=== PATIENT | male | born 2005 | race Caucasian/White ===

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

== ENCOUNTER 2024-04-13 09:09 | Emergency (ER) | payer MEDICAID, SELFPAY ==
[~2024-04-13] VITALS: Ht 185.4 cm; Wt 79.8 kg
[~2024-04-13 09:09] MED LIST changes: +DOXY-323 PO; -DOXY-443 PO
[2024-04-13] MEDS ORDERED: FLON1SPR NARES (12:21)
[2024-04-13] MEDS ORDERED: BENZ200C70 PO (12:21)
[2024-04-13] MEDS ORDERED: PSEU30TA88 PO (12:21)
[2024-04-13 12:23] VITALS: BP 122/68; TEMP 96.6; O2SAT 100
[2024-04-14] MEDS ORDERED: TRIA1PST TOP (15:28)
== END 2024-04-13 12:35 | disposition home or self-care (01) ==
LOC: M ED 09:09
DX: R05.9 Cough, unspecified (principal); R09.81 Nasal congestion; R09.89 Other specified symptoms and signs involving the circulatory and respiratory systems; Z79.2 Long term (current) use of antibiotics; Z79.899 Other long term (current) drug therapy

== ENCOUNTER 2024-04-29 14:15 | Emergency (ER) | payer MEDICAID ==
[~2024-04-29] VITALS: Ht 185.4 cm; Wt 74.5 kg
[~2024-04-29 14:15] MED LIST changes: +BENZ200C70 PO; -DOXY-323 PO; +DOXY-441 PO; +FLON1SPR NARES; +PSEU30TA88 PO; +TRIA1PST TOP
[2024-04-29 14:58] LABS: HEMATOCRIT 45.5 % (42.0-52.0); HEMOGLOBIN 15.6 g/dl (13.5-17.5); MEAN CORPUSCULAR HEMOGLOBIN 30.8 pg (27.0-33.0); MEAN CORPUSCULAR HGB CONC 34.3 g/dl (32.0-36.5); MEAN CORPUSCULAR VOLUME 89.9 fl (80.0-96.0); PLATELET COUNT, AUTOMATED 320 10^3/uL (150-450); RED BLOOD COUNT 5.06 10^6/uL (4.30-6.10); WHITE BLOOD COUNT 5.6 10^3/uL (4.0-10.0)
[2024-04-29 15:25] LABS: AMPHETAMINES LEVEL URINE NEGATIVE (NEGATIVE); BARBITURATES URINE NEGATIVE (NEGATIVE); BENZODIAZEPINES URINE NEGATIVE (NEGATIVE); CANNABINOIDS URINE NEGATIVE (NEGATIVE); COCAINE METABOLITE URINE NEGATIVE (NEGATIVE); METHADONE URINE NEGATIVE (NEGATIVE); OPIATES URINE NEGATIVE (NEGATIVE); PHENCYCLIDINE URINE NEGATIVE (NEGATIVE)
[2024-04-29 15:28] LABS: ETHYL ALCOHOL (ETHANOL) 0.082 % (0.000-0.010)
[2024-04-29 15:29] LABS: SALICYLATE LEVEL < 3.0 MG/DL (<30)
[2024-04-29 15:30] LABS: ALBUMIN 4.6 G/DL (3.2-5.2); ALKALINE PHOSPHATASE 73 U/L (46-116); ALT/SGPT 18 U/L (7.0-40); AST/SGOT < 8 U/L (<34); BILIRUBIN,DIRECT 0.2 MG/DL (<0.4); BILIRUBIN,TOTAL 0.5 MG/DL (0.3-1.2); BLOOD UREA NITROGEN 7 MG/DL (9-23); CALCIUM LEVEL 9.3 MG/DL (8.5-10.1); CARBON DIOXIDE LEVEL 27 MMOL/L (20-31); CHLORIDE LEVEL 109 MMOL/L (98-107); CREATININE FOR GFR 0.77 MG/DL (0.70-1.30); GLUCOSE, FASTING 87 MG/DL (60-100); SODIUM LEVEL 142 MMOL/L (136-145); TOTAL PROTEIN 7.9 G/DL (5.7-8.2)
[2024-04-29 15:31] LABS: THYROID STIMULATING HORMONE 0.919 uIU/ML (0.48-4.17)
[2024-04-29] MEDS ORDERED: HOME MED LIST COMPLETE! XX SCH (16:00)
[2024-04-29 18:19] VITALS: BP 138/75; TEMP 97.7; O2SAT 99
== END 2024-04-29 18:22 | disposition home or self-care (01) ==
LOC: M ED 14:15
DX: Z04.6 Encounter for general psychiatric examination, requested by authority (principal); F17.210 Nicotine dependence, cigarettes, uncomplicated; F10.10 Alcohol abuse, uncomplicated

== ENCOUNTER 2024-06-13 14:49 | Emergency (ER) | payer MEDICAID, OTHER ==
[~2024-06-13] VITALS: Ht 188 cm; Wt 81.0 kg
[2024-06-13 15:17] LABS: BASO % 0.7 % (0.0-1.0); EOS # 0.4 10^3/uL (0.0-0.5); EOS % 7.1 % (0.0-3.0); HEMATOCRIT 43.5 % (42.0-52.0); HEMOGLOBIN 14.9 g/dl (13.5-17.5); LYMPH # 1.4 10^3/uL (1.5-5.0); LYMPH % 26.8 % (24.0-44.0); MEAN CORPUSCULAR HEMOGLOBIN 31.2 pg (27.0-33.0); MEAN CORPUSCULAR HGB CONC 34.3 g/dl (32.0-36.5); MONO # 0.8 10^3/uL (0.0-0.8); MONO % 13.9 % (2.0-8.0); NEUTROPHILS # 2.7 10^3/uL (1.5-8.5); NEUTROPHILS % 50.9 % (36.0-66.0); PLATELET COUNT, AUTOMATED 267 10^3/uL (150-450); RED BLOOD COUNT 4.78 10^6/uL (4.30-6.10); WHITE BLOOD COUNT 5.4 10^3/uL (4.0-10.0)
[2024-06-13 15:50] LABS: BLOOD UREA NITROGEN 14 MG/DL (9-23); CALCIUM LEVEL 9.4 MG/DL (8.5-10.1); CARBON DIOXIDE LEVEL 31 MMOL/L (20-31); CHLORIDE LEVEL 106 MMOL/L (98-107); CK-MB VALUE MASS < 1.0 NG/ML (<3.6); CPK CREATINE PHOSPHOKINASE 93 U/L (46-171); CREATININE FOR GFR 0.73 MG/DL (0.70-1.30); GLUCOSE, FASTING 61 MG/DL (60-100); MB/CK RELATIVE INDEX 1.07 (< OR =4); POTASSIUM SERUM 3.8 MMOL/L (3.5-5.1); SODIUM LEVEL 141 MMOL/L (136-145)
[2024-06-13 17:00] VITALS: BP 124/58; TEMP 98.8; O2SAT 98
== END 2024-06-13 17:15 | disposition home or self-care (01) ==
LOC: M ED 14:49
DX: R07.9 Chest pain, unspecified (principal); F10.10 Alcohol abuse, uncomplicated; F17.200 Nicotine dependence, unspecified, uncomplicated; F12.10 Cannabis abuse, uncomplicated

== ENCOUNTER → 2024-09-30 | Outpatient (CLI) | payer OTHER ==
[2024-09-30 15:31] LABS: BASO # 0.1 10^3/uL (0.0-0.2); BASO % 1.2 % (0.0-1.0); EOS # 0.4 10^3/uL (0.0-0.5); EOS % 8.6 % (0.0-3.0); HEMATOCRIT 42.8 % (42.0-52.0); HEMOGLOBIN 14.3 g/dl (13.5-17.5); LYMPH # 1.7 10^3/uL (1.5-5.0); LYMPH % 34.9 % (24.0-44.0); MEAN CORPUSCULAR HEMOGLOBIN 30.2 pg (27.0-33.0); MEAN CORPUSCULAR HGB CONC 33.4 g/dl (32.0-36.5); MEAN CORPUSCULAR VOLUME 90.3 fl (80.0-96.0); MONO # 0.7 10^3/uL (0.0-0.8); MONO % 14.4 % (2.0-8.0); NEUTROPHILS % 40.3 % (36.0-66.0); PLATELET COUNT, AUTOMATED 270 10^3/uL (150-450); RED BLOOD COUNT 4.74 10^6/uL (4.30-6.10); WHITE BLOOD COUNT 4.9 10^3/uL (4.0-10.0)
[2024-09-30 15:33] LABS: VITAMIN B12 LEVEL 437 PG/ML (211-911)
[2024-09-30 15:35] LABS: ALKALINE PHOSPHATASE 71 U/L (40-129); ALT/SGPT 16 U/L (7.0-40); AST/SGOT 10 U/L (<34); BILIRUBIN,TOTAL 0.4 MG/DL (0.3-1.2); BLOOD UREA NITROGEN 13 MG/DL (9-23); CALCIUM LEVEL 8.7 MG/DL (8.5-10.1); CARBON DIOXIDE LEVEL 29 MMOL/L (20-31); CHLORIDE LEVEL 105 MMOL/L (98-107); CHOLESTEROL LEVEL 115 MG/DL (<200); CHOLESTEROL RISK RATIO 2.87 (<5); CPK CREATINE PHOSPHOKINASE 91 U/L (46-171); CREATININE FOR GFR 0.77 MG/DL (0.70-1.30); GLUCOSE, FASTING 85 MG/DL (60-100); IRON (FE) 118 UG/DL (65-175); LDL CHOLESTEROL 55.6 MG/DL (<100); PERCENT SATURATION 37.5 % (19.7-50.0); POTASSIUM SERUM 4.3 MMOL/L (3.5-5.1); SODIUM LEVEL 141 MMOL/L (136-145); THYROID STIMULATING HORMONE 2.434 uIU/ML (0.48-4.17); TOTAL IRON BINDING CAPACITY 315 UG/DL (250-425); TOTAL PROTEIN 7.1 G/DL (5.7-8.2); TRIGLYCERIDES LEVEL 97 MG/DL (<150)
[2024-09-30 15:37] LABS: FREE T4 1.25 NG/DL (0.83-1.43)
[2024-09-30 15:59] LABS: HIV 1&2 SCREEN NEGATIVE (NEGATIVE)
== END ==
LOC: M ADAMS 11:00
PROVIDERS: ATTEND Nurse Practitioner Family
DX: R07.9 Chest pain, unspecified (principal); R53.83 Other fatigue; Z11.3 Encounter for screening for infections with a predominantly sexual mode of transmission; Z13.220 Encounter for screening for lipoid disorders; E55.9 Vitamin D deficiency, unspecified

== ENCOUNTER 2024-11-06 21:50 | Emergency (ER) | payer OTHER ==
[~2024-11-06] VITALS: Ht 182.9 cm; Wt 94.0 kg
[2024-11-07] MEDS: METOCLOPRAMIDE INJ 10MG/2ML VIAL IV ONE (00:11)
[2024-11-07] MEDS: KETOROLAC 30 MG/ML 1ML VIAL IV ONE (00:12)
[2024-11-07] MEDS: NS (Normal Saline) 0.9% 1,000 ML IV ONE (00:13)
[2024-11-07 00:43] LABS: BLOOD UREA NITROGEN 10 MG/DL (9-23); CARBON DIOXIDE LEVEL 29 MMOL/L (20-31); CHLORIDE LEVEL 102 MMOL/L (98-107); CREATININE FOR GFR 0.79 MG/DL (0.70-1.30); GLOMERULAR FILTRATION RATE > 90.0 (>60); GLUCOSE, FASTING 84 MG/DL (60-100); POTASSIUM SERUM 3.8 MMOL/L (3.5-5.1); SODIUM LEVEL 138 MMOL/L (136-145)
[2024-11-07 01:30] VITALS: BP 120/70
[2024-11-07 01:35] VITALS: O2SAT 98
[2024-11-07 01:37] LABS: BASO % 0.9 % (0.0-1.0); EOS % 0.4 % (0.0-3.0); HEMATOCRIT 42.3 % (42.0-52.0); HEMOGLOBIN 14.6 g/dl (13.5-17.5); LYMPH % 22.8 % (24.0-44.0); MEAN CORPUSCULAR HEMOGLOBIN 30.1 pg (27.0-33.0); MEAN CORPUSCULAR HGB CONC 34.5 g/dl (32.0-36.5); MEAN CORPUSCULAR VOLUME 87.2 fl (80.0-96.0); MONO # 1.3 10^3/uL (0.0-0.8); MONO % 28.4 % (2.0-8.0); NEUTROPHILS # 2.1 10^3/uL (1.5-8.5); NEUTROPHILS % 47.3 % (36.0-66.0); PLATELET COUNT, AUTOMATED 228 10^3/uL (150-450); RED BLOOD COUNT 4.85 10^6/uL (4.30-6.10); WHITE BLOOD COUNT 4.5 10^3/uL (4.0-10.0)
[2024-11-07 01:47] VITALS: TEMP 98
[2024-11-07] MEDS ORDERED: RIZA10TA64 PO (01:55)
== END 2024-11-07 02:09 | disposition home or self-care (01) ==
LOC: M ED 21:50
DX: R51.9 Headache, unspecified (principal); F17.200 Nicotine dependence, unspecified, uncomplicated; Z79.899 Other long term (current) drug therapy
CPT/HCPCS: 70450; 71046; 80048; 85025; 87486; 87581; 87633; 87798; 87880; 93005; 96361; 96374; 96375; 99284; J1885; J2765

== ENCOUNTER 2025-03-11 18:13 | Emergency (ER) | payer OTHER ==
[~2025-03-11] VITALS: Ht 185.4 cm; Wt 79.3 kg
[~2025-03-11 18:13] MED LIST changes: +RIZA10TA64 PO
[2025-03-11 18:21] VITALS: BP 137/67; TEMP 98.1; O2SAT 98
== END 2025-03-11 19:14 | disposition left against medical advice (07) ==
LOC: M ED 18:13 → EDBD 18:13 → M ED 19:14
DX: Z53.21 Procedure and treatment not carried out due to patient leaving prior to being seen by health care provider (principal)